=== PATIENT | male | born 1995 | race African-American/Black ===

== ENCOUNTER 2018-08-05 11:47 | Emergency (ER) | payer OTHER ==
[~2018-08-05] VITALS: Ht 170.2 cm; Wt 58.0 kg
[2018-08-05] MEDS ORDERED: IBUP80TA PO (11:53)
[2018-08-05 12:46] LABS: HEMOGLOBIN 13.2 g/dl (13.5-17.5); MEAN CORPUSCULAR HGB CONC 32.2 g/dl (32.0-36.5); PLATELET COUNT, AUTOMATED 340 10^3/uL (150-450); RED BLOOD COUNT 4.88 10^6/uL (4.30-6.10); WHITE BLOOD COUNT 7.7 10^3/uL (4.0-10.0)
[2018-08-05 13:01] LABS: BLOOD UREA NITROGEN 9 MG/DL (7-18); CALCIUM LEVEL 8.7 MG/DL (8.5-10.1); CARBON DIOXIDE LEVEL 28 MEQ/L (21-32); CHLORIDE LEVEL 108 MEQ/L (98-107); CREATININE FOR GFR 0.89 MG/DL (0.70-1.30); GLOMERULAR FILTRATION RATE > 60.0 (>60); GLUCOSE, FASTING 95 MG/DL (70-100); POTASSIUM SERUM 4.3 MEQ/L (3.5-5.1); SODIUM LEVEL 142 MEQ/L (136-145)
[2018-08-05] MEDS ORDERED: AMOX500C PO (14:32)
--- NOTE | 2018-08-05 14:33 | REP ---
THYROID ULTRASOUND: Real-time sonographic evaluation of the thyroid performed and demonstrates both lobes to be normal in size, right lobe measuring 4.3 x 4.6 x 1.1 cm and left lobe 4.2 x 1.5 x 1.3 cm. There are tiny cysts in the left lower pole, largest is 3 mm. Patient complains of right neck pain and ultrasound of that area shows two nonenlarged lymph nodes measuring 2.2 x 0.3 x 0.9 cm and 1.1 x 0.4 x 0.8 cm. In the same area on the left side there is a lymph node with a similar morphologic appearance measuring 1.5 x 0.3 x 0.8 cm. IMPRESSION: Thyroid normal in size with no significant mass. No adenopathy visualized. Electronically Signed by Antonio King MD 08/05/2018 07:11 P
[2018-08-05 14:37] VITALS: BP 115/75
== END 2018-08-05 14:40 | disposition home or self-care (01) ==
LOC: M ED 11:47
DX: R59.0 Localized enlarged lymph nodes (principal)

== ENCOUNTER 2020-02-28 20:13 | Emergency (ER) | payer OTHER ==
[~2020-02-28] VITALS: Ht 167.6 cm; Wt 55.0 kg
[~2020-02-28 20:13] MED LIST: AMOX500C PO; IBUP80TA PO
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
[2020-02-28 22:31] VITALS: BP 128/83
== END 2020-02-28 22:34 | disposition home or self-care (01) ==
LOC: M ED 20:13
DX: S50.12XA Contusion of left forearm, initial encounter (principal); V86.64XA Passenger of military vehicle injured in nontraffic accident, initial encounter; Y92.138 Other place on military base as the place of occurrence of the external cause